=== PATIENT | female | born 1955 | race Hispanic/Latino ===

== ENCOUNTER 2023-03-30 07:06 | Observation (INO) | payer MEDICARE ==
[~2023-03-30] VITALS: Ht 162.6 cm; Wt 80.7 kg
[2023-03-30] MEDS ORDERED: DILTIAZEM 25MG INJ IVP ONE ×2 (07:30→10:00)
[2023-03-30 07:31] LABS: BASOPHILS # (AUTO) 0.11 K/uL (0.00-0.20); EOSINOPHILS # (AUTO) 0.21 K/uL (0.00-0.70); EOSINOPHILS % (AUTO) 1.9 % (0.0-8.0); HEMATOCRIT 41.8 % (36-48); IMMATURE GRANULOCYTE ABSOLUTE 0.03 K/uL (0-1); LYMPHOCYTES # (AUTO) 2.9 K/uL (1.0-4.8); LYMPHOCYTES % (AUTO) 26.7 % (21.0-51.0); MEAN CORPUSCULAR HEMOGLOBIN 28.6 pg (27.0-33.0); MEAN CORPUSCULAR VOLUME 86.5 fL (79-99); MONOCYTES # (AUTO) 0.9 K/uL (0.1-1.0); MONOCYTES % (AUTO) 8.1 % (3.0-13.0); NEUTROPHILS # (AUTO) 6.8 K/uL (1.8-7.7); PLATELET COUNT (AUTO) 278 K/uL (130-400); RED BLOOD CELL COUNT(AUTO) 4.83 MIL/uL (4.00-5.50); RED CELL DISTRIBUTION WIDTH 14.5 % (11.0-15.5); WHITE BLOOD COUNT (AUTO) 10.9 K/uL (4.8-10.8)
[2023-03-30] MEDS ORDERED: DILTIAZEM 125 MG/25 ML INJ IV ONE ×2 (07:35→10:06)
[2023-03-30] MEDS: 0.9% NACL 500ML IV.SOLN 500 ML IV SCH ×5 (07:38→09:25)
[2023-03-30 07:51] LABS: INR 0.93 (0.85-1.15); PROTHROMBIN TIME 9.9 SEC (9.6-11.6)
[2023-03-30 07:53] LABS: PARTIAL THROMBOPLASTIN TIME 28.4 SEC (26.3-35.5)
[2023-03-30 08:33] LABS: APPEARANCE,URINE CLEAR (CLEAR); BILIRUBIN,URINE NEGATIVE (NEGATIVE); COLOR,URINE COLORLESS (YELLOW); GLUCOSE, URINE (UA) 200 mg/dL (NEGATIVE); KETONES,URINE NEGATIVE (NEGATIVE); LEUKOCYTE ESTERASE ,URINE NEGATIVE Leu/uL (NEGATIVE); NITRATE,URINE NEGATIVE (NEGATIVE); OCCULT BLOOD,URINE NEGATIVE (NEGATIVE); PROTEIN,URINE NEGATIVE (NEGATIVE); UROBILINOGEN,URINE 0.2 mg/dL (0.2-1.0)
[2023-03-30 08:35] LABS: ADD UA MICROSCOPIC YES
[2023-03-30 08:43] LABS: SQUAMOUS EPITHELIAL CELL,UR RARE /HPF (0-2)
[2023-03-30 09:13] LABS: ALBUMIN 3.8 g/dL (3.5-5.0); BILIRUBIN,TOTAL 0.3 mg/dL (0.2-1.0); CREATININE 0.8 mg/dL (0.5-1.5); POTASSIUM 4.1 mmol/L (3.5-5.1); TOTAL PROTEIN, SERUM 7.8 g/dL (6.0-8.3)
[2023-03-30] MEDS ORDERED: DILTIAZEM 125MG+100 ML NS 125 ML IV PRN (10:00)
[2023-03-30] MEDS ORDERED: ASPIRIN 81MG CHEW TAB PO ONE (10:30)
[2023-03-30 11:47] LABS: HEMOGLOBIN A1C 7.5 % (4.0-6.0)
[2023-03-30] MEDS ORDERED: METF-446 PO (12:07)
[2023-03-30] MEDS ORDERED: GLIM4TAB36 PO (12:07)
[2023-03-30] MEDS ORDERED: INSLAN SQ (12:10)
[2023-03-30] MEDS ORDERED: METO50TA18 PO (12:10)
[2023-03-30] MEDS ORDERED: ROSU40 PO (12:10)
[2023-03-30 13:29] LABS: SARS-CoV-2, RNA, NAAT NEGATIVE SARS CoV-2 (NEGATIVE)
[2023-03-30 16:10] VITALS: O2SAT 97
[2023-03-30] MEDS: INSULIN HUMULIN R 100 UNIT/ML 3ML SQ SCH ×2 (16:44→20:21)
[2023-03-30 16:47] VITALS: BP 117/66; PULSE 71; RESP 15
[2023-03-30 19:32] VITALS: BP 128/59; PULSE 73; RESP 18
[2023-03-30] MEDS ORDERED: METO-391 PO (19:38)
[2023-03-30] MEDS ORDERED: OLME-40 PO (19:43)
[2023-03-30 20:00] VITALS: O2SAT 98
[2023-03-30] MEDS: FAMOTIDINE 20MG VIAL IV SCH (20:20)
[2023-03-30] MEDS: METOPROLOL TARTRATE 50 MG TAB PO SCH (20:20)
[2023-03-31] VITALS: BP 135/73; PULSE 65; RESP 18
[2023-03-31] MEDS ORDERED: ASPIRIN 81MG CHEW TAB PO SCH (09:00)
[2023-03-31] MEDS ORDERED: INSULIN GLARGINE 100 UNITS/ML 10 ML VIAL SQ SCH (09:00)
[2023-03-31] MEDS ORDERED: APIXABAN 5 MG TABLET ONE (09:11)
[2023-03-31] MEDS ORDERED: METOPROLOL SUCCINATE 50 MG TAB.SR.24H PO ONE (09:12)
[2023-03-31 20:00] VITALS: O2SAT 98
[2023-03-31] MEDS: FAMOTIDINE 20MG VIAL IV SCH (21:00)
[2023-03-31] MEDS: METOPROLOL TARTRATE 50 MG TAB PO SCH (21:00)
[2023-03-31] MEDS: INSULIN HUMULIN R 100 UNIT/ML 3ML SQ SCH (21:00)
[2023-03-31] MEDS ORDERED: ACETAMINOPHEN 325 MG TAB ONE (21:39)
[2023-04-01 00:35] LABS: CREATININE 0.8 mg/dL (0.5-1.5); MAGNESIUM 1.7 mg/dL (1.80-2.40); POTASSIUM 3.5 mmol/L (3.5-5.1)
[2023-04-01] MEDS ORDERED: ALPRAZOLAM 1 MG TAB PO PRN (01:00)
[2023-04-01] MEDS ORDERED: ACETAMINOPHEN 325 MG TAB PO PRN (01:00)
[2023-04-01 19:24] LABS: BASOPHILS % (AUTO) 0.9 % (0.0-5.0); LYMPHOCYTES % (AUTO) 30.3 % (21.0-51.0); MEAN CORPUSCULAR HEMOGLOBIN 28.6 pg (27.0-33.0); MEAN CORPUSCULAR HGB CONC 32.9 g/dL (32.0-36.0); MEAN CORPUSCULAR VOLUME 87.1 fL (79-99); MONOCYTES % (AUTO) 7.9 % (3.0-13.0); NEUTROPHILS % (AUTO) 58.6 % (40.0-77.0); PLATELET COUNT (AUTO) 246 K/uL (130-400); RED BLOOD CELL COUNT(AUTO) 4.02 MIL/uL (4.00-5.50); RED CELL DISTRIBUTION WIDTH 14.6 % (11.0-15.5); WHITE BLOOD COUNT (AUTO) 7.8 K/uL (4.8-10.8)
[2023-04-01 19:25] LABS: BASOPHILS # (AUTO) 0.07 K/uL (0.00-0.20); EOSINOPHILS # (AUTO) 0.16 K/uL (0.00-0.70); IMMATURE GRANULOCYTE ABSOLUTE 0.02 K/uL (0-1); LYMPHOCYTES # (AUTO) 2.4 K/uL (1.0-4.8); MONOCYTES # (AUTO) 0.6 K/uL (0.1-1.0); NEUTROPHILS # (AUTO) 4.6 K/uL (1.8-7.7)
== END 2023-03-31 12:45 | disposition home or self-care (01) ==
LOC: EDH 07:06 → INTOOBSV 10:27 → EDHIP 10:27 → 2DH 15:54
PROVIDERS: ADMIT Internal Medicine; ATTEND Internal Medicine
DX: I48.0 Paroxysmal atrial fibrillation (principal); Z20.822 Contact with and (suspected) exposure to COVID-19; I10 Essential (primary) hypertension; E11.9 Type 2 diabetes mellitus without complications; D72.829 Elevated white blood cell count, unspecified; E78.5 Hyperlipidemia, unspecified; I25.10 Atherosclerotic heart disease of native coronary artery without angina pectoris; R32 Unspecified urinary incontinence; Z79.4 Long term (current) use of insulin; Z86.73 Personal history of transient ischemic attack (TIA), and cerebral infarction without residual deficits; Z79.899 Other long term (current) drug therapy
CPT/HCPCS: 96374; 96376; 96375; 96361; 99285; 83036; 84443; 82550; 83874; 84484; 80053; 85025 ×2; 85610; 85730; 87040 ×2; 82948 ×4; 83605 ×2; 81001; 36415 ×2; 87635; 71045; 70450; 93306; 93005 ×2; 83735; 80048; 84145; J1815 ×4; G0378 ×26; J7040; J3490 ×8